=== PATIENT | female | born 2000 | race Caucasian/White ===

== ENCOUNTER 2018-11-29 15:01 | Emergency (ER) | payer OTHER, SELFPAY ==
--- NOTE | 2018-11-29 16:20 | RAD ---
TWO VIEWS OF THE CHEST: 11/29/18 HISTORY: Chest pain. Sharp pressure in left chest. PA and lateral views of the chest is obtained. The lungs are well aerated. No evidence of active intr athoracic disease seen. No evidence of effusions, pneumonia, or pneumothorax seen. IMPRESSION: Unremarkable two views chest. POS: [facility]
== END 2018-11-29 17:30 | disposition home health service (06) ==
LOC: ERS 15:01
DX: R07.2 Precordial pain (principal)
CPT/HCPCS: 71046; 93005